=== PATIENT | female | born 1960 | race Caucasian/White ===

== ENCOUNTER → 2017-02-27 | Outpatient (CLI) | payer OTHER | END | disposition home or self-care (01) | LOC: CFH 15:25 | PROVIDERS: ATTEND Nurse Practitioner Family | DX: R06.00 Dyspnea, unspecified (principal) | CPT/HCPCS: 71020 ==

== ENCOUNTER → 2017-09-04 | Outpatient (CLI) | payer OTHER ==
[2017-09-04 13:38] LABS: ANION GAP 8 mmol/L (5-15); CALCIUM 8.9 mg/dL (8.5-10.1); CHLORIDE 105 mmol/L (98-107); CREATININE 0.71 mg/dL (0.55-1.02)
[2017-09-04 13:42] LABS: BASOPHILS # (AUTO) 0.03 x10^3/uL (0-0.1); BASOPHILS % (AUTO) 0 % (0-1); EOSINOPHILS # (AUTO) 0.15 x10^3/uL (0-0.4); EOSINOPHILS % (AUTO) 2 % (1-7); LYMPHOCYTES # (AUTO) 2.57 x10^3/uL (1-3.4); LYMPHOCYTES % (AUTO) 34 % (22-44); MD NO; MEAN CORPUSCULAR HEMOGLOBIN 30.2 pg (27.0-34.8); MEAN CORPUSCULAR HGB CONC 34.1 g/dL (32.4-35.8); MEAN CORPUSCULAR VOLUME 88.5 fL (80-100); MEAN PLATELET VOLUME 8.1 fL (7.4-10.4); MONOCYTES # (AUTO) 0.42 x10^3/uL (0.2-0.8); MONOCYTES % (AUTO) 6 % (2-9); NEUTROPHILS # (AUTO) 4.43 x10^3/uL (1.8-6.8); NEUTROPHILS % (AUTO) 58 % (42-75); PLATELET COUNT 308 x10^3/uL (130-400); RED BLOOD COUNT 4.91 x10^6/uL (3.82-5.3); RED CELL DISTRIBUTION WIDTH 12.8 % (9.6-15.2)
== END | disposition home or self-care (01) ==
LOC: STAR 12:19
PROVIDERS: ATTEND Obstetrics & Gynecology Female Pelvic Medicine and Reconstructive Surgery
DX: Z01.818 Encounter for other preprocedural examination (principal); N92.4 Excessive bleeding in the premenopausal period; N84.0 Polyp of corpus uteri
CPT/HCPCS: 36415; 71046; 80048; 85025; 93005

== ENCOUNTER 2017-09-25 05:39 | Day surgery (SDC) | payer OTHER ==
[~2017-09-25] VITALS: Ht 154.9 cm; Wt 54.8 kg
[~2017-09-25 05:39] MED LIST: ASCO10004 PO; BIFI4CAP PO; CALC600T4 PO
[2017-09-25] MEDS ORDERED: LACTATED RINGERS 1,000 ML IV SCH ×2 (06:39→08:55)
[2017-09-25] MEDS ORDERED: INDIGO CARMINE 0.8%, 5ML ONE (07:01)
[2017-09-25] MEDS ORDERED: THROMBIN 5,000 UNIT VIAL TP ONE (07:01)
[2017-09-25] MEDS ORDERED: BUPIVACAINE/PF 0.25% ONE (07:01)
[2017-09-25] MEDS ORDERED: ACETAMINOPHEN 500 MG TABLET ONE (07:16)
[2017-09-25] MEDS ORDERED: GABAPENTIN 300 MG CAPSULE ONE (07:16)
[2017-09-25] MEDS ORDERED: LIDOCAINE GEL 2%, 5ML ONE (07:20)
[2017-09-25] MEDS ORDERED: MIDAZOLAM 1 MG/ML, 2ML ONE (07:21)
[2017-09-25] MEDS ORDERED: FENTANYL PF 100 MCG/2ML ONE ×2 (07:21→10:01)
[2017-09-25] MEDS ORDERED: FLUORESCEIN SODIUM 500 MG/5 ML ONE (07:26)
[2017-09-25] MEDS ORDERED: EPINEPHRINE 1 MG/ML, 1ML ONE (07:27)
[2017-09-25] MEDS ORDERED: ACETAMINOPHEN 500 MG TABLET PO ONE (07:30)
[2017-09-25] MEDS ORDERED: GABAPENTIN 300 MG CAPSULE PO ONE (07:30)
[2017-09-25] MEDS ORDERED: KETOROLAC 30 MG/1 ML ONE (07:33)
[2017-09-25] MEDS ORDERED: ONDANSETRON 2MG/ML, 2ML ONE (07:45)
[2017-09-25] MEDS ORDERED: NEOSTIGMINE 1 MG/ML, 10ML ONE (07:45)
[2017-09-25] MEDS ORDERED: PROPOFOL 10 MG/ML, 20ML ONE (07:45)
[2017-09-25] MEDS ORDERED: DEXAMETHASONE 4 MG/ML, 1ML ONE (07:45)
[2017-09-25] MEDS ORDERED: SUCCINYLCHOLINE 20 MG/ML, 10ML ONE (07:45)
[2017-09-25] MEDS ORDERED: ROCURONIUM 10 MG/ML,10ML ONE (07:45)
[2017-09-25] MEDS ORDERED: GLYCOPYRROLATE 0.2MG/1ML, 5ML ONE (07:45)
[2017-09-25] MEDS ORDERED: CEFAZOLIN 1,000 MG ONE (07:45)
[2017-09-25] MEDS ORDERED: BUPIVACAINE/PF-EPI 0.25% 1:200K INFIL ONE (08:08)
[2017-09-25] MEDS ORDERED: LIDOCAINE-MPF 2% ,5ML ONE (08:26)
[2017-09-25 08:48] LABS: HCG UR SG 1.024 (1.003-1.030)
[2017-09-25] MEDS ORDERED: LABETALOL 5MG/ML, 20ML IV PRN (09:00)
[2017-09-25] MEDS ORDERED: MEPERIDINE/PF 25MG/0.5ML IVPush PRN (09:00)
[2017-09-25] MEDS ORDERED: ALBUTEROL/IPRATROPIUM 2.5MG/0.5MG, 3 ML NPPB PRN (09:00)
[2017-09-25] MEDS ORDERED: PROMETHAZINE 25 MG SUPP PR ONE (09:00)
[2017-09-25] MEDS ORDERED: ONDANSETRON 2MG/ML, 2ML IVPush PRN ×2 (09:00)
[2017-09-25] MEDS ORDERED: PROMETHAZINE 25 MG/ML, 1ML IV PRN (09:00)
[2017-09-25] MEDS ORDERED: morphine SULFATE 10 MG/ML, 1ML IV PRN (09:00)
[2017-09-25] MEDS ORDERED: DIAZEPAM 5 MG/ML, 2ML IVPush PRN (09:00)
[2017-09-25] MEDS ORDERED: METOCLOPRAMIDE 5 MG/ML, 2ML IV PRN (09:00)
[2017-09-25] MEDS ORDERED: OXYcodone 5 MG/5 ML ORAL.SOL UDC PO PRN (09:00)
[2017-09-25] MEDS ORDERED: MIDAZOLAM 1 MG/ML, 2ML IV PRN (09:00)
[2017-09-25] MEDS ORDERED: PROMETHAZINE 12.5 MG SUPP PR PRN (09:00)
[2017-09-25] MEDS ORDERED: hydrALAzine 20 MG/ML, 1ML IV PRN (09:00)
[2017-09-25] MEDS ORDERED: IBUPROFEN 600 MG TABLET PO PRN (09:00)
[2017-09-25] MEDS ORDERED: OXYcodone 5 MG/5 ML ORAL.SOL UDC ONE (10:01)
[2017-09-25] MEDS: FENTANYL PF 100 MCG/2ML IV PRN ×2 (10:06→10:20)
== END 2017-09-25 14:50 ==
LOC: OUT 05:39 → MERGE 07:30 → OUT 14:50
PROVIDERS: ATTEND Obstetrics & Gynecology Female Pelvic Medicine and Reconstructive Surgery
DX: N93.8 Other specified abnormal uterine and vaginal bleeding (principal); N85.2 Hypertrophy of uterus; Z88.0 Allergy status to penicillin; Z98.890 Other specified postprocedural states; Z90.49 Acquired absence of other specified parts of digestive tract
CPT/HCPCS: 58571; 81025; 88307; J0171; J0690; J1100; J1885; J2250; J2405; J2704; J2710; J3010; J3490; J7120; J0330